=== PATIENT | female | born 1985 | race American Indian/Alaskan Native ===

== ENCOUNTER 2020-07-02 20:40 | Emergency (ER) | payer SELFPAY ==
[2020-07-02] MEDS ORDERED: IBUPROFEN 600 MG TAB PO ONE (22:48)
--- NOTE | 2020-07-02 23:11 | Emergency Department Report ---
ED Fever HPI - General Chief Complaint: Fever Stated Complaint: FEVER 102 Time Seen by Provider: 07/02/20 22:43 Source: patient - History of Present Illness Initial Comments: 35-year-old female presents to the emergency room for fever started today. Patient reports a slight cough and a scratchy throat. Patient denies any dysuria no nausea no vomiting no urinary frequency. Denies any shortness of breath or chest pain. Denies any abdominal pain no vaginal discharge or vaginal bleeding. Reports her last menstrual period was 06/09/2020. It was noted that patient temperature was 101.5 p.o. and I repeated temperature was 102.2. Timing/Duration: this morning Fever Severity/Quality: greater than 102 F Associated Symptoms: cough, sore throat (Scratchy). denies: abdominal pain, chest pain, headache, muscle aches, nausea/vomiting, shortness of breath ED Review of Systems ROS: Stated complaint: FEVER 102 Other details as noted in HPI Comment: All other systems reviewed and negative ED Past Medical Hx - Past Medical History Previous Medical History?: No - Surgical History Past Surgical History?: No - Social History Smoking Status: Never Smoker Substance Use Type: None - Medications Home Medications: Home Medications Medication Instructions Recorded Confirmed Last Taken Type Ibuprofen [Motrin 800 MG tab] 800 mg PO Q8HR PRN #30 tablet 07/03/20 Unknown Rx ED Physical Exam - General Limitations: No Limitations General appearance: alert, in no apparent distress - Head Head exam: Present: atraumatic, normocephalic - Eye Eye exam: Present: normal appearance - ENT ENT exam: Present: normal orophraynx, mucous membranes moist, normal external ear exam - Neck Neck exam: Present: normal inspection, full ROM - Respiratory Respiratory exam: Present: normal lung sounds bilaterally. Absent: respiratory distress, accessory muscle use - Cardiovascular Cardiovascular Exam: Present: tachycardia - GI/Abdominal GI/Abdominal exam: Present: soft, normal bowel sounds - Extremities Exam Extremities exam: Present: normal inspection, full ROM - Back Exam Back exam: Present: normal inspection ED Course Vital Signs 07/02/20 07/02/20 21:51 22:49 Temperature 101.5 F H 102.2 F H Pulse Rate 95 H Respiratory 18 Rate Blood Pressure 138/98 O2 Sat by Pulse 97 Oximetry ED Medical Decision Making - Lab Data Result diagrams: 07/02/20 22:49 07/02/20 22:49 - Radiology Data Radiology results: report reviewed [facility] [address] [place] [address] XRay Report Signed Patient: BON LACEY MR#: [id number] 65 : 1985 Acct:[id number] Age/Sex: 35 / F ADM Date: 07/02/20 Loc: ED Attending Dr: Ordering Physician: DARCI MAYES Date of Service: 07/02/20 Procedure(s): XR chest routine 2V Accession Number(s): [id number] cc: DARCI MAYES Fluoro Time In Minutes: CHEST 2 VIEWS INDICATION / CLINICAL INFORMATION: Shortness of breath, cough and rales. COMPARISON: None available. FINDINGS: SUPPORT DEVICES: None. HEART / MEDIASTINUM: The heart size and pulmonary vasculature are normal. LUNGS / PLEURA: No significant pulmonary or pleural abnormality. No pneumothorax. ADDITIONAL FINDINGS: No significant additional findings. IMPRESSION: No acute findings. Signer Name: Baldev Ogden MD Signed: 07/03/2020 12:49 AM Workstation Name: [id number] Transcribed By: RT Dictated By: Baldev Ogden MD Electronically Authenticated By: Baldev Ogden MD Signed Date/Time: 07/03/2048 DD/ TD/TT: Print Cancel - Medical Decision Making 35-year-old female presents to the emergency room for fever started today. Patient reports a slight cough and a scratchy throat. Patient denies any dysuria no nausea no vomiting no urinary frequency. Denies any shortness of breath or chest pain. Denies any abdominal pain no vaginal discharge or vaginal bleeding. Reports her last menstrual period was 06/09/2020. It was noted that patient temperature was 101.5 p.o. and I repeated temperature was 102.2. Chest x-ray is negative vital signs has improved labs are nonactionable. Critical care attestation.: If time is entered above; I have spent that time in minutes in the direct care o f this critically ill patient, excluding procedure time. ED Disposition Clinical Impression: Viral syndrome Disposition: DC-01 TO HOME OR SELFCARE Is pt being admited?: No Does the pt Need Aspirin: No Condition: Stable Instructions: Viral Respiratory Infection Additional Instructions: Your symptoms appear most consistent with a nonspecific viral syndrome. However, given this current pandemic, COVID-19 is in the differential of possibilities. Despite your previous negative COVID-19 test, I do recommend repeat outpatient Covid 19 testing. In the meantime, isolate/quarantine yourself and stay away from anyone who is elderly, immunocompromised or chronically ill. You can use ibuprofen every 6-8 hours and Tylenol every 4-8 hours, using the dosing on the back of the bottle, as needed for any fever or body aches. Return to the emergency department with any worsening of your symptoms, development of chest pain or shortness of breath, or with any acute distress. Chest x-ray is negative for any pneumonia. Labs are stable. Prescriptions: Ibuprofen [Motrin 800 MG tab] 800 mg PO Q8HR PRN #30 tablet PRN Reason: Fever >101 Referrals: [facility] [Primary Care Provider] - 3-[address] [facility] [Provider Group] - 3-5 Days Forms: Work/School Release Form(ED)
[2020-07-02 23:24] LABS: Basophils % (Auto) 0.4 % (0.0-1.8); Eosinophils % (Auto) 0.1 % (0.0-4.3); Hematocrit 36.1 % (30.3-42.9); Hemoglobin 12.2 gm/dl (10.1-14.3); Lymphocytes # (Auto) 0.6 K/mm3 (1.2-5.4); Lymphocytes % (Auto) 21.5 % (13.4-35.0); Mean Corpuscular HGB Conc 34 % (30-34); Mean Corpuscular Volume 101 fl (79-97); Monocytes # (Auto) 0.3 K/mm3 (0.0-0.8); Monocytes % (Auto) 11.6 % (0.0-7.3); Platelet Count 117 K/mm3 (140-440); Red Blood Count 3.59 M/mm3 (3.65-5.03)
[2020-07-02 23:32] LABS: Blood Urea Nitrogen 9 mg/dL (7-17); Calcium 8.2 mg/dL (8.4-10.2); Hemolysis Index 2
[2020-07-03 00:08] LABS: BUN/Creatinine Ratio 13
[2020-07-03 00:15] LABS: Bilirubin,Urine NEG (Negative); Blood,Urine NEG (Negative); Color,Urine Yellow (Yellow); Mucus,Urine FEW /HPF; Protein,Urine <15 mg/dL mg/dL (Negative); WBC,Urine < 1.0 /HPF (0.0-6.0)
[2020-07-03 00:21] LABS: HCG Qualitative,Urine Negative (Negative)
[2020-07-03 00:31] LABS: Alanine Aminotransferase 13 units/L (7-56); Albumin 4.4 g/dL (3.9-5)
--- NOTE | 2020-07-03 00:54 | XRay Report ---
CHEST 2 VIEWS INDICATION / CLINICAL INFORMATION: Shortness of breath, cough and rales. COMPARISON: None available. FINDINGS: SUPPORT DEVICES: None. HEART / MEDIASTINUM: The heart size and pulmonary vasculature are normal. LUNGS / PLEURA: No significant pulmonary or pleural abnormality. No pneumothorax. ADDITIONAL FINDINGS: No significant additional findings. IMPRESSION: No acute findings. Signer Name: Baldev Ogden MD Signed: 07/03/2020 12:49 AM Workstation Name: [id number]
[2020-07-03 01:06] VITALS: BP 120/69
== END 2020-07-03 01:22 | disposition home or self-care (01) ==
LOC: ED 20:40
DX: B34.9 Viral infection, unspecified (principal); Z79.899 Other long term (current) drug therapy
CPT/HCPCS: 36415; 71046; 80053; 81001; 81025; 85025

== ENCOUNTER 2021-11-03 06:05 | Inpatient (IN) | payer OTHER ==
[~2021-11-03 06:05] MED LIST: ACETAMINOPHEN 500 MG TAB PO SCH; CELECOXIB 200 MG CAP PO NR; GABAPENTIN 300 MG CAP PO NR; LACTATED RINGERS 1,000 ML IV SCH; MIDAZOLAM 2 MG/2 ML INJ IV NR; SCOPOLAMINE TRANSDERMAL PATCH 72 HR TD NR
[2021-11-03] MEDS ORDERED: BACTERIOSTATIC SODIUM CHLORIDE 0.9% 30 ML VIAL INFILTRATI ONE (06:50)
[2021-11-03] MEDS ORDERED: dexAMETHasone 4 MG/ML VIAL ONE (07:29)
[2021-11-03] MEDS ORDERED: BUPIVACAINE-EPINEPHRINE/PF 0.25%-1:200,000 (30 ML) VIAL INFILTRATI ONE (07:30)
[2021-11-03] MEDS ORDERED: ONDANSETRON 4 MG/2 ML INJ ONE (07:46)
[2021-11-03] MEDS ORDERED: HYDROmorphone 1 MG/1 ML INJ ONE (07:46)
[2021-11-03] MEDS ORDERED: ROCURONIUM 50 MG/5 ML INJ IV ONE (07:46)
[2021-11-03] MEDS ORDERED: propofoL 200 MG/20 ML VIAL IV ONE (07:47)
[2021-11-03] MEDS ORDERED: HYDROmorphone 0.5 MG/0.5 ML INJ IV PRN (07:47)
[2021-11-03] MEDS ORDERED: ONDANSETRON 4 MG/2 ML INJ IV PRN (07:47)
--- NOTE | 2021-11-03 07:47 | Anesthesia Consultation ---
Anesthesia Consult and Med Hx Date of service: 11/03/21 - Airway Anesthetic Teeth Evaluation: Good ROM Head & Neck: Adequate Mental/Hyoid Distance: Adequate Mallampati Class: Class III Intubation Access Assessment: Possibly Difficult - Pre-Operative Health Status ASA Pre-Surgery Classification: ASA1 Proposed Anesthetic Plan: General - Pulmonary Hx Smoking: No Hx Respiratory Symptoms: No - Cardiovascular System Hx Hypertension: No - Central Nervous System CVA: No - Endocrine Hx Renal Disease: No Hx Liver Disease: No Hx Insulin Dependent Diabetes: No Hx Non-Insulin Dependent Diabetes: No Hx Thyroid Disease: No - Other Systems Hx Obesity: Yes (BMI 31) - Additional Comments Anesthesia Medical History Comments: No prior GA or FHx anesthetic complications.
--- NOTE | 2021-11-03 07:47 | History and Physical Report ---
History of Present Illness Date of examination: 11/03/21 Date of admission: 11/03/21 06:05 Chief complaint: Pelvic/abdominal mass x3yrs History of present illness: Fibroids diagnosed on sonography. Nulliparous. Past History Past Medical History: no pertinent history Past Surgical History: no surgical history Medications and Allergies Allergies Allergy/AdvReac Type Severity Reaction Status Date / Time No Known Allergies Allergy Verified 11/02/21 12:33 Home Medications Medication Instructions Recorded Confirmed Last Taken Type Ibuprofen [Motrin 800 MG tab] 800 mg PO Q8HR PRN #30 tablet 07/03/20 Unknown Rx Active Meds: Active Medications Acetaminophen (Acetaminophen 500 Mg Tab) 1,000 mg PO PREOP BRENDON Stop: 11/03/21 23:59 Cefazolin Sodium (Cefazolin/Sterile Water 2 Gm/20 Ml Syringe) 2 gm IV PREOP NR Stop: 11/03/21 23:00 Celecoxib (Celecoxib 200 Mg Cap) 200 mg PO PREOP NR Stop: 11/03/21 23:59 Fentanyl (Fentanyl 100 Mcg/2 Ml Inj) 100 mcg IV ONCE PRN PRN Reason: sedation for nerve block Stop: 11/03/21 23:59 Gabapentin (Gabapentin 300 Mg Cap) 300 mg PO PREOP NR Stop: 11/03/21 23:59 Lactated Ringer's (Lactated Ringers) 1,000 mls @ 100 mls/hr IV DIRECT BRENDON Stop: 11/03/21 23:59 Methocarbamol (Methocarbamol 500 Mg Tab) 750 mg PO PREOP BRENDON Stop: 11/03/21 23:59 Midazolam HCl (Midazolam 2 Mg/2 Ml Inj) 2 mg IV PREOP NR Stop: 11/03/21 23:59 Scopolamine (Scopolamine Transdermal Patch 72 Hr) 1 each TD PREOP NR Stop: 11/03/21 23:59 Review of Systems All systems: negative Gastrointestinal: other (abd mass) Genitourinary: pelvic pain - Physical Exam Breasts: Positive: deferred Cardiovascular: Normal S1, Normal S2, No murmurs Lungs: Positive: Normal air movement Abdomen: Positive: distention, normal bowel sounds, mass Genitourinary (Female): Positive: normal external genitalia, normal perenium Vulva: both: normal Vagina: Positive: normal moisture. Negative: discharge Cervix: Negative: lesion, discharge Uterus: Positive: enlarged Anus/Rectum: Positive: normal perianal skin Extremities: Deep Tendon Reflex Grade: Normal +2 Results All other labs normal. Assessment and Plan - Patient Problems (1) Pelvic mass Current Visit: Yes Status: Acute Plan to address problem: for exploratory laparotomy. Myomectomy is planned but patient consented to an unavoidable hysterectomy. (2) Pelvic pain Current Visit: Yes Status: Acute (3) Uterine myoma Current Visit: Yes Status: Acute
--- NOTE | 2021-11-03 07:47 | Anesthesia Day of Surgery ---
Anesthesia Day of Surgery - Day of Surgery Patient Examined: Yes Patient H&P Reviewed: Yes Patient is NPO: Yes
[2021-11-03 07:52] LABS: Hematocrit 39.3 % (30.3-42.9); Mean Corpuscular HGB Conc 33 % (30-34); Mean Corpuscular Volume 101 fl (79-97); Platelet Count 164 K/mm3 (140-440); Red Blood Count 3.92 M/mm3 (3.65-5.03); Red Cell Distribution Width 13.2 % (13.2-15.2)
[2021-11-03] MEDS ORDERED: ceFAZolin/STERILE WATER 2 GM/20 ML SYRINGE IV NR (08:00)
[2021-11-03] MEDS: fentaNYL 100 MCG/2 ML INJ IV PRN ×2 (08:01→08:09)
[2021-11-03] MEDS ORDERED: METHYLENE BLUE 50 MG/10 ML AMP ONE (08:03)
[2021-11-03] MEDS ORDERED: SODIUM CHLORIDE 0.9% 250ML 0 ML ONE (08:04)
[2021-11-03] MEDS ORDERED: VASOPRESSIN 20 UNIT/1 ML INJ ONE (08:05)
[2021-11-03 08:23] LABS: Blood Urea Nitrogen 9 mg/dL (7-17); Calcium 9.1 mg/dL (8.4-10.2); Hemolysis Index 11
[2021-11-03 08:31] LABS: BUN/Creatinine Ratio 13
[2021-11-03] MEDS ORDERED: LIDOCAINE MPF (2%) 20 MG/1 ML VIAL 5 ML ONE (09:00)
[2021-11-03] MEDS ORDERED: LACTATED RINGERS 1,000 ML ONE ×2 (10:44→10:45)
[2021-11-03] MEDS ORDERED: GLYCOPYRROLATE 0.4 MG/2 ML INJ ONE (10:44)
[2021-11-03] MEDS ORDERED: NEOSTIGMINE 10MG/10 ML INJ MDV ONE (10:44)
[2021-11-03] MEDS ORDERED: KETOROLAC 30 MG/1 ML INJ ONE (10:51)
--- NOTE | 2021-11-03 11:56 | Operative Report ---
Operative Report Operative Report: Date of surgery: August 03, 2019 Admission diagnosis: Pelvic pain, abdominal and pelvic mass Postoperative diagnosis: The same, 30 x 20 cm enlarged uterine mass, fibroids. Umbilical hernia. Procedure: Diagnostic laparoscopic. Lysis of adhesions Surgeon: Juan Diego Anne MD Anesthesia: General anesthesia Anesthesiologist: Payton Harris MD Estimated blood loss: 700 cc Complications: None Findings: The fallopian tubes and ovaries were all grossly normal. The uterus was massively enlarged with a 30 x 20 cm hard mass extending just inferior to the xiphisternum. The bowels, omentum, inferior dome of the diaphragm, the liver were all grossly normal. The vermiform appendix was visualized and was grossly normal. The cecum was visualized and was also grossly normal. Procedure in details: Patient was taken to the operating room and in the straight supine position she was given general anesthesia. Patient was then put in the straight supine position and prepped in the vulvar vagina and abdomen. The drapes were placed. A timeout was done. With the go ahead from the translation director, an indwelling Shine catheter was inserted. The abdomen was entered through a midline incision extending from the symphysis pubis and superior to the umbilicus The peritoneal cavity was explored. The abdominal pelvic mass was determined to be of uterine origin, myoma. Pictures were taken. The multiple fibroids were shelled out by incising the capsule over the posterior aspect of the uterine fundus. Excess flap of seromuscular tissue was excised. The crater was extirpated with multiple stages of #1 Vicryl. The serosa layer was closed with #1 Vicryl. It was not possible to determine whether the cavity of the uterus was entered. However, due to the extensive dissection needed to extricate the large uterine fibroids, the integrity of the myometrium should the deemed compromised enough to warrant consideration for delivery should a become an issue. Suture placements were done taking care to avoid the possible paths of the fallopian tubes. The patient tolerated the procedure well. There were no complications. Blood loss was estimated 700 cc. All sponges and instruments were accounted for. The patient was transferred in satisfactory condition to the recovery room.
[2021-11-03] MEDS ORDERED: HYDROcodone/ACETAMINOPHEN 5-325 MG TAB PO PRN (12:00)
[2021-11-03 12:17] VITALS: BP 118/76
--- NOTE | 2021-11-03 13:25 | Post Anesthesia Evaluation ---
- Post Anesthesia Evaluation Patient Participated: Yes Airway Patent: Yes Stable Respiratory Function: Yes Nausea/Vomiting: No Temp > 96.8F: Yes Pain Manageable: Yes Adequeate Hydration: Yes Anesthesia Complications: No
== END 2021-11-03 12:50 | disposition home or self-care (01) | DRG 743 ==
LOC: 3A 06:05
PROVIDERS: ADMIT Obstetrics & Gynecology; ATTEND Obstetrics & Gynecology
PROC: 0UB94ZZ Excision of Uterus, Percutaneous Endoscopic Approach (ICD-10-PCS; principal; 2021-11-03)
PROC: 30233N1 Transfusion of Nonautologous Red Blood Cells into Peripheral Vein, Percutaneous Approach (ICD-10-PCS; 2021-11-03)
DX: D25.9 Leiomyoma of uterus, unspecified (principal); R19.00 Intra-abdominal and pelvic swelling, mass and lump, unspecified site; K42.9 Umbilical hernia without obstruction or gangrene
CPT/HCPCS: 36415; 64450; 80048; 81025; 85027; 86850; 86900; 86901; 86920; 88309; G0378; J1815; J3490; J1100; J1170; J1885; J2250; J2405; J2704; J2710; J3010; J7050; J7120; Q9968